=== PATIENT | male | born 1965 | race Caucasian/White ===

== ENCOUNTER → 2016-09-15 | Outpatient (CLI) | payer BC ==
[2016-09-15 10:21] LABS: Basophils # (auto) 0 uL; Basophils % (auto) 0.2 % (0.0-2.0); Eosinophils # (auto) 0.3 uL; Eosinophils % (auto) 2.5 % (0.0-7.0); Hematocrit 47.5 % (41.0-53.0); Hemoglobin 15.5 g/dL (13.5-17.5); Mean Corpuscular Hemoglobin 27.8 pg (28.0-32.0); Mean Corpuscular Hgb Conc. 32.6 g/dL (32.0-36.0); Mean Corpuscular Volume 85.3 fL (80.0-100.0); Mean Platelet Volume 8.3 fL (7.4-10.4); Monocytes # (auto) 0.6 uL; Monocytes % (auto) 5.6 % (0.0-12.0); Neutrophils # (auto) 7.5 uL; Neutrophils % (auto) 72.7 % (37.0-80.0); Platelet Count (auto) 380 10^3/uL (140-450); Red Cell Distribution Width 15.5 % (11.6-16.0); White Blood Cell 10.3 10^3/uL (4.4-10.8)
[2016-09-15 10:28] LABS: INR 1.04 (0.9-1.15); Prothrombin Time 10.7 sec (9.37-12.3)
== END | disposition home or self-care (01) ==
LOC: LAB 09:14
PROVIDERS: ATTEND Internal Medicine Gastroenterology
DX: Z01.812 Encounter for preprocedural laboratory examination (principal)
CPT/HCPCS: 36415; 85025; 85610; 85730

== ENCOUNTER → 2017-01-26 | Outpatient (CLI) | payer BC ==
[2017-01-26 07:15] LABS: Basophils # (auto) 0 uL; Basophils % (auto) 0.2 % (0.0-2.0); CONDITION Y; Eosinophils # (auto) 0.3 uL; Eosinophils % (auto) 2.5 % (0.0-7.0); Hematocrit 45.8 % (41.0-53.0); Hemoglobin 15.2 g/dL (13.5-17.5); Lymphocytes % (auto) 18.9 % (10.0-50.0); Mean Corpuscular Hemoglobin 28.9 pg (28.0-32.0); Mean Corpuscular Hgb Conc. 33.2 g/dL (32.0-36.0); Mean Corpuscular Volume 86.9 fL (80.0-100.0); Mean Platelet Volume 7.9 fL (7.4-10.4); Monocytes # (auto) 0.8 uL; Monocytes % (auto) 7.3 % (0.0-12.0); Neutrophils # (auto) 7.5 uL; Neutrophils % (auto) 71.1 % (37.0-80.0); Platelet Count (auto) 362 10^3/uL (140-450); Red Cell Distribution Width 14.5 % (11.6-16.0); White Blood Cell 10.6 10^3/uL (4.4-10.8)
[2017-01-26 07:33] LABS: Albumin 3.3 g/dL (3.4-5.0); BUN/Creatinine Ratio 20.5; Bilirubin, Total 0.3 mg/dL (0.2-1.0); Calcium 8.8 mg/dL (8.5-10.1); Potassium 4.3 mmol/L (3.5-5.1); Total Protein 6.7 g/dL (6.4-8.2)
== END | disposition home or self-care (01) ==
LOC: LAB 06:32
PROVIDERS: ATTEND Internal Medicine
DX: Z00.00 Encounter for general adult medical examination without abnormal findings (principal)
CPT/HCPCS: 36415; 80053; 80061; 84153; 85025

== ENCOUNTER → 2017-12-04 | Outpatient (CLI) | payer BC ==
[2017-12-04 08:12] LABS: Basophils # (auto) 0 uL; Basophils % (auto) 0.3 % (0.0-2.0); Eosinophils # (auto) 0.3 uL; Eosinophils % (auto) 3.9 % (0.0-7.0); Hematocrit 43.8 % (41.0-53.0); Hemoglobin 14.4 g/dL (13.5-17.5); Lymphocytes # (auto) 1.7 uL; Lymphocytes % (auto) 19.6 % (10.0-50.0); Mean Corpuscular Hemoglobin 28.6 pg (28.0-32.0); Mean Corpuscular Hgb Conc. 32.8 g/dL (32.0-36.0); Mean Corpuscular Volume 87.3 fL (80.0-100.0); Monocytes # (auto) 0.7 uL; Monocytes % (auto) 7.9 % (0.0-12.0); Neutrophils # (auto) 5.8 uL; Neutrophils % (auto) 68.3 % (37.0-80.0); Platelet Count (auto) 328 10^3/uL (140-450); Red Blood Cells 5.02 10^6/uL (4.5-5.90); Red Cell Distribution Width 14.7 % (11.8-14.3); White Blood Cell 8.4 10^3/uL (4.4-10.8)
[2017-12-04 08:35] LABS: Albumin 3.2 g/dL (3.4-5.0); BUN/Creatinine Ratio 16.7; Bilirubin, Total 0.3 mg/dL (0.2-1.0); Calcium 8.6 mg/dL (8.5-10.1); Potassium 4.1 mmol/L (3.5-5.1); Total Protein 6.4 g/dL (6.4-8.2)
== END | disposition home or self-care (01) ==
LOC: LAB 07:20
PROVIDERS: ATTEND Physician Assistant
DX: Z12.5 Encounter for screening for malignant neoplasm of prostate (principal); E78.4 Other hyperlipidemia; R63.5 Abnormal weight gain; K21.9 Gastro-esophageal reflux disease without esophagitis; K63.5 Polyp of colon; R79.89 Other specified abnormal findings of blood chemistry
CPT/HCPCS: 36415; 80053; 80061; 83036; 84153; 85025